=== PATIENT | female | born 1980 | race Caucasian/White ===

== ENCOUNTER → 2016-05-22 | Outpatient (CLI) | payer MEDICARE, OTHER, MEDICAID ==
--- NOTE | 2016-05-22 20:22 | XCELERA REPORT ---
[address] [address] Transthoracic Echocardiogram Report Name: OWEN WILLIS Age: 35 yrs Gender: Female : 1980 Patient Status: Outpatient Patient Location: Study Date: 05/22/2016 03:20 PM Height: 69 in Weight: 274 lb BSA: 2.4 m2 Reason For Study: SOB Ordering Physician: BLU BROOKS Performed By: Anabel Chen Interpretation Summary Poor images, RH not totally imaged, unable to totally rule out pulm hypertension, this is dependent on sampling the TR jet. LVEF is low normal 50%, by my biplane analysis, but apical views suboptimal. No LV diastolic dysfunction. Probably no regional wall motion abnormality. No or MS. MMode/2D Measurements \T\ Calculations RVDd: 2.8 cm LVIDd: 5.4 cm FS: 33.9 % Ao root diam: 3.6 cm IVSd: 0.88 cm LVIDs: 3.6 cm EDV(Teich): 141.7 ml LVPWd: 0.88 cm ESV(Teich): 53.5 ml Ao root area: 10.4 cm2 EF(Teich): 62.3 % LA dimension: 2.8 cm LVOT diam: 2.5 cm LVOT area: 4.7 cm2 Doppler Measurements \T\ Calculations MV E max tami: MV P1/2t max tami: Ao V2 max: LV V1 max P.8 cm/sec 77.8 cm/sec 126.5 cm/sec 4.0 mmHg MV A max tami: MV P1/2t: 65.7 msec Ao max PG: LV V1 max: 44.2 cm/sec MVA(P1/2t): 3.3 cm2 6.4 mmHg 99.5 cm/sec MV E/A: 1.7 MV dec slope: DERIAN(V,D): 3.7 cm2 346.8 cm/sec2 MV dec time: 0.22 sec PA V2 max: PI end-d tami: TR max tami: 65.9 cm/sec 106.0 cm/sec 229.3 cm/sec PA max PG: TR max P.7 mmHg 21.0 mmHg Left Ventricle The left ventricle is normal in size, thickness and function. There is normal left ventricular wall thickness. The left ventricular ejection fraction is normal. LV EF is 50-%. Doppler measurements suggest normal left ventricular diastolic function. No regional wall motion abnormalities noted. There is no thrombus. Right Ventricle The right ventricle is normal in size, thickness and function. Atria Right atrium not well visualized secondary to technical limitations. The left atrial size is normal. The interatrial septum is intact with no evidence for an atrial septal defect. Mitral Valve The mitral valve is normal in structure and function. There is no evidence of mitral valve prolapse. There is no mitral valve stenosis. There is no mitral regurgitation noted. Aortic Valve The aortic valve opens well. The aortic valve is not well visualized secondary to technical limitations. There is no aortic valvular vegetation. There is no aortic valve stenosis. No aortic regurgitation is present. Tricuspid Valve The tricuspid valve is not well visualized, but is grossly normal. There is a trace or physiologic amount of tricuspid regurgitation. Right ventricular systolic pressure is estimated to be within upper limit of normal. Pulmonic Valve The pulmonic valve is not well visualized. There is a trace or physiologic amount of pulmonic regurgitation. Great Vessels The aortic root is normal size. Effusions There is no pericardial effusion. I WMSI = 1.00 % Normal = 100 Segments Size X - Cannot 1 - Normal 2 - 3 - Akinetic4 - 1-2 small Interpret Hypokinetic Dyskinetic 3-5 moderate 5 - 6-14 large Aneurysmal 15-16 diffuse : BLU BROOKS > Justo Thompson
== END ==
LOC: SP 15:07
PROVIDERS: ATTEND Family Medicine
DX: R06.02 Shortness of breath (principal)
CPT/HCPCS: 93306

== ENCOUNTER → 2016-06-05 | Outpatient (CLI) | payer MEDICARE, MEDICAID ==
--- NOTE | 2016-06-05 18:58 | XCELERA REPORT ---
[address] [address] Lower Extremity Venous Evaluation Name: OWEN WILLIS Age: 35 yrs Gender: Female : 1980 Patient Status: Outpatient Patient Location: Study Date: 06/05/2016 01:21 PM Procedure: Color flow and duplex imaging bilaterally of the veins of the lower extremities as well as the Common Femoral veins. Reason For Study: EDEMA Ordering Physician: NHUNG ALVES Performed By: Germania Rashid Right Sided Venous Evaluation Normal vessel filling wall to wall, compression and augmentation as well as Colour flow down to the infrageniculate veins. Left Sided Venous Evaluation Normal vessel filling wall to wall, compression and augmentation as well as Colour flow down to the infrageniculate veins. Interpretation Summary No duplex evidence of DVT or obstruction in the bilateral lower extremities. : NHUNG ALVES > Han Shetty
== END ==
LOC: SP 12:59
PROVIDERS: ATTEND Specialist
DX: R60.0 Localized edema (principal); R07.9 Chest pain, unspecified; R06.09 Other forms of dyspnea; K59.00 Constipation, unspecified
CPT/HCPCS: 74022; 93970

== ENCOUNTER → 2016-06-12 | Outpatient (CLI) | payer MEDICARE, OTHER ==
[~2016-06-12] MED LIST: REGADENOSON INJ 0.4 MG/5 ML DISP.SYRIN IV ONE
--- NOTE | 2016-06-13 21:48 | DRAGON STRESS TEST REPORT ---
Intravenous Lexiscan Cardiolite stress test using single photon emmision computerized tomography. Date of procedure: Ordering Provider: Dr. Effie Cerda. Primary Care Physician: Dr. Winston. [[facility]] Indication: Chest pain. Coronary risk factors: Resting EKG: Sinus Rhythm. Within Normal Limits. Stress EKG: No changes of ischemia. The patient no chest pain or discomfort, and there were no arrhythmias seen. Reason for termination: Protocol. Conclusions: Normal EKG and hemodynamic response to IV Lexiscan. Nuclear data: At rest the patient was given 15.28 millicuries of technetium 99m sestamibi injected intravenously. As per protocol rest non gated SPECT images were obtained. Subsequently the patient was given intravenous Lexiscan at a dose of 0.4 mg in 5 mL intravenously, followed by flush with normal saline. Subsequently the stress dose of 43.8 millicuries of technetium 99m sestamibi was injected intravenously. As per protocol stress gated images were obtained. Nuclear interpretation: Review of images showed that this is a very poor quality study with there being saline better breast attenuation artifact. In spite of this probably All segments of the myocardium had normal perfusion at rest, and normal perfusion post stress with IV Lexiscan. All segments of the myocardium had normal motion, contraction, and thickening by gated study. T. I D. ratio was normal at 1.15 . Computer read rest, and stress left ventricular ejection fraction were 61 %, and 55 %, respectively. Conclusion: 1. There is no scintigraphic evidence of Lexiscan induced myocardial ischemia. 2. There is no scintigraphic evidence of myocardial infarction/scar. Recommendations: 1.Close clinical follow-up of the patient by internal medicine and cardiology, and cardiac catheterization if patient has recurrent chest pains. 2.Aggressive risk factor modification, and treating the underlying co- morbidities. JENISE
== END ==
LOC: RAD 07:31
PROVIDERS: ATTEND Specialist
DX: R07.9 Chest pain, unspecified (principal); R06.09 Other forms of dyspnea; R60.0 Localized edema
CPT/HCPCS: 93017; 78452; A9500; J2785; Q9969

== ENCOUNTER → 2016-06-12 | Outpatient (CLI) | payer MEDICARE, MEDICAID ==
[~2016-06-12] MED LIST changes: +ALBUTEROL SULFATE 0.083% NEB 2.5 MG/3 ML AMPUL NEB ONE; -REGADENOSON INJ 0.4 MG/5 ML DISP.SYRIN IV ONE
--- NOTE | 2016-06-14 10:25 | PULMONARY FUNCTION TEST ---
DATE OF SERVICE: 06/12/2016 THE VITAL CAPACITY IS NORMAL. THE EXPIRATORY FLOW RATES ARE SLIGHTLY DECREASED. THE FEV1/VC IS 68%, PREDICTED: 84% LUNG VOLUMES BY NITROGEN WASH OUT METHOD SHOW: TLC IS 80% OF PREDICTED FRC IS 76% OF PREDICTED RV IS 47% OF PREDICTED THE DLCO IS 22.2, 67% OF PREDICTED. THE RV/TLC RATIO IS 19% PREDICTED 31% AFTER BRONCHODILATOR, EXPIRATORY FLOW RATES SHOW NO SIGNIFICANT CHANGE. IMPRESSION: GOOD PATIENT EFFORT. SLIGHT RESTRICTIVE DEFECT. DIFFUSING CAPACITY IS MODERATELY DECREASED. CC: NHUNG ALVES MD > JENISE
== END ==
LOC: RT 12:30
PROVIDERS: ATTEND Specialist
DX: R06.02 Shortness of breath (principal)
CPT/HCPCS: 94729; 94727; 94060; A9270